=== PATIENT | female | born 1980 | race African-American/Black ===

== ENCOUNTER 2018-04-06 19:20 | Emergency (ER) | payer BC, MEDICAID ==
--- NOTE | 2018-04-06 19:56 | ER Document Report ---
HPI - HPI Pain Level: 4 Notes: Patient is a 37-year-old female with a history of hypertension and hypothyroidism who presents to the ED for a laceration to her right index finger. Patient states that she has a small cut from tinfoil which she has kept a Band-Aid over, but it continues to bleed. Patient states that the incident occurred about 5 hours ago. Patient states that over the last hour she felt a pain in her finger which then made her feel sweaty, tingly all over, and stated that both hands "locked up." Patient states that this only lasted for "a little while." Patient states that those symptoms have since resolved. Patient states that she does continue to have pain to the finger however. Denies any drug allergies or IV drug use. Patient states that she did not take her evening dose of her blood pressure medication yet and does not know what that dose is. Unknown last tetanus. Denies any headache, fever, head injury, neck pain, changes in vision/speech/mentation/hearing, URI, sore throat, chest pain, palpitations, syncope, cough, shortness of breath, wheeze, dyspnea, abdominal pain, nausea/vomiting/diarrhea, urinary retention, dysuria, hematuria , loss of control of bowel or bladder, saddle anesthesia, focal weakness, or rash. - ROS Systems Reviewed and Negative: Yes All other systems reviewed and negative - REPRODUCTIVE Reproductive: DENIES: : Past Medical History - Social History Smoking Status: Never Smoker Family History: Reviewed & Not Pertinent - Past Medical History Cardiac Medical History: Reports: Hx Hypertension - meds x 3 months (r/t thyroid dysfunction) Denies: Hx Atrial Fibrillation, Hx Congestive Heart Failure, Hx Coronary Artery Disease, Hx Heart Attack, Hx Hypercholesterolemia, Hx Peripheral Vascular Disease, Hx Heart Murmur Neurological Medical History: Denies: Hx Seizures Endocrine Medical History: Denies: Hx Graves' Disease, Hx Hyperthyroidism, Hx Hypothyroidism Malignancy Medical History: Denies: Hx Leukemia Infectious Medical History: Denies: Hx HIV Past Surgical History: Denies: Hx Pacemaker Vertical Provider Document - CONSTITUTIONAL Agree With Documented VS: Yes Notes: PHYSICAL EXAMINATION: GENERAL: Well-appearing, well-nourished and in no acute distress. A&Ox4. Answers questions appropriately. HEAD: Atraumatic, normocephalic. Non-tender. EYES: Pupils equal round and reactive to light, extraocular movements intact, sclera anicteric, conjunctiva are normal. No nystagmus. vis armstrong intact. ENT: EAC clear b/l. TM's intact b/l without erythema, fluid, or perforation. Nares patent and without discharge. oropharynx clear without exudates. No tonsilar hypertrophy or erythema. Moist mucous membranes. No sinus tenderness. NECK: Normal range of motion, supple without lymphadenopathy. No rigidity/ meningismus. No midline tenderness. LUNGS: Breath sounds clear to auscultation bilaterally and equal. No wheezes rales or rhonchi. HEART: Regular rate and rhythm without murmurs, rubs, gallops. Musculoskeletal: Ext's b/l: FROM to passive/active. Strength 5+/5. No deficits noted. No bony tenderness of extremities.there is a very small superficial laceration to the distal posterior 2nd digit rt hand (resembles a paper-cut) w/o any wound separation. The bleeding is constant, but not heavy despite pressure. Extremities: No cyanosis, clubbing, or edema b/l. Peripheral pulses 2+. Capillary refill less than 2 seconds. NEUROLOGICAL: NIH 0. GCS 15. Cranial nerves grossly intact. Normal speech, normal gait. Normal sensory, motor exams. Reflexes 2+ b/l. JENNIFER's negative. Pronator drift negative. Heel/bustillo, finger/nose wnl. Rhomberg neg. PSYCH: Normal mood, normal affect. SKIN: see above. - INFECTION CONTROL TRAVEL OUTSIDE OF THE [place] IN LAST 30 DAYS: No Course - Re-evaluation Re-evalutation: 04/06/18 20:05 Patient is an afebrile, well-hydrated, 37-year-old female who presents to the ED with a very superficial laceration to the right distal index finger and possible vasovagal symptoms associated. Patient had symptoms immediately after feeling pain in the finger which have already since resolved. Pt has been completely asymptomatic since prior to arrival. There is never any unilateral focal weakness or symptoms. Vitals are acceptable without any significant tachycardia, tachypnea, or hypoxia. PE is otherwise unremarkable for any focal neurological deficits, neurovascular compromise, obvious tendon/ligament rupture , obvious fracture/dislocation, septic joint. NIH 0, GCS 15, cranial nerves grossly intact. The wound resembles a paper cut as it was done by tinfoil and does not need suture closure. Wound was thoroughly irrigated and cleansed. A tourniquet was placed on the finger which adequately stop the bleeding to allow us time to place Dermabond successfully without any complications. Wound dressing placed and wound instructions reviewed. Tetanus was updated today. Conservative measures for symptoms. Recheck with your PCM in 2-3 days. Return to the ED with any worsening/concerning symptoms otherwise as reviewed in discharge. Patient is in agreement. - Vital Signs Vital signs: Temp Pulse Resp BP Pulse Ox 98.6 F 74 16 158/92 H 100 04/06/18 19:29 04/06/18 19:29 04/06/18 19:29 04/06/18 19:29 04/06/18 19:29 Procedures - Laceration/Wound Repair Right Finger 2nd digit Time completed: 20:05 Wound length (cm): 0.4 Wound's Depth, Shape: Superficial, Linear Laceration pre-procedure: Sterile PPE donned, Sterile drapes applied, Other - chlorhexadine/saline Wound explored: Clean, No foreign body removed Irrigated w/ Saline (mLs): 60 Wound Debrided: none Wound Repaired With: Dermabond Post-procedure wound care: Sterile dressing applied Post-procedure NV exam normal: Yes Complications: No Discharge - Discharge Clinical Impression: Finger laceration Qualifiers: Encounter type: initial encounter Finger: index finger Damage to nail status: without damage Foreign body presence: without foreign body Laterality: right Qualified Code(s): S61.210A - Laceration without foreign body of right index finger without damage to nail, initial encounter Condition: Stable Disposition: HOME, SELF-CARE Instructions: Tetanus Immunization Given ([facility]) Additional Instructions: Keep the skin clean Wash with soap and water, do not scrub Tylenol/ibuprofen if needed Take medication as directed Monitor for any worsening symptoms Recheck with your PCM in 3-5 days Return to the ED with any worsening symptoms and/or development of fever, headache, changes in behavior/mentation/vision/speech, chest pain, palpitations , syncope, shortness of breath, trouble breathing, abdominal pain, n/v/d, blood in stool/urine, loss of control of bowel/bladder, urinary retention, muscle weakness/paralysis, saddle anesthesia, numbness/tingling, or other worsening symptoms that are concerning to you. Forms: Elevated Blood Pressure Referrals: ALDO ELLIS MD [ACTIVE STAFF] - Follow up as needed
[2018-04-06] MEDS ORDERED: ACETAMINOPHEN 325 MG TABLET PO ONE (20:04)
[2018-04-06] MEDS ORDERED: DIPH/PERTUSS(ACELL)/TETANUS VAC/PF 0.5 ML SYR (>=10YO) IM ONE (20:13)
[2018-04-06 20:59] VITALS: BP 144/91
== END 2018-04-06 20:57 | disposition home or self-care (01) ==
LOC: ER 19:20
DX: S61.210A Laceration without foreign body of right index finger without damage to nail, initial encounter (principal); W45.8XXA Other foreign body or object entering through skin, initial encounter; I10 Essential (primary) hypertension; Z23 Encounter for immunization
CPT/HCPCS: 90471; 90715; 99283